=== PATIENT | female | born 2000 | race Caucasian/White ===

== ENCOUNTER 2020-01-10 19:42 | Emergency (ER) | payer OTHER ==
[~2020-01-10] VITALS: Ht 165.1 cm; Wt 61.4 kg
[2020-01-10 20:06] VITALS: BP 105/75
[2020-01-10 21:11] LABS: COLLECTION METHOD CLEAN CATCH
[2020-01-10 21:21] LABS: MUCOUS Present /lpf; PH 5 (5-8); URINE APPEARANCE Hazy; URINE BACTERIA None Seen /hpf; URINE BILIRUBIN Negative (NEGATIVE); URINE BLOOD Negative (NEGATIVE); URINE COLOR Yellow; URINE GLUCOSE Negative (NEGATIVE); URINE KETONE 1+ (NEGATIVE); URINE LEUKOCYTE ESTERASE Negative (NEGATIVE); URINE NITRATE Negative (NEGATIVE); URINE PROTEIN(semi-quant) Negative (NEGATIVE); URINE RBC 0-2 /hpf
[2020-01-10] MEDS ORDERED: CLEVER CHOICE1 EA20 MC (21:36)
[2020-01-10] MEDS ORDERED: ZOFRAN ODT4 MG PO (21:36)
[2020-01-10] MEDS ORDERED: PROAIR HFA0.09 MG/AC IH (21:36)
[2020-01-10 21:49] VITALS: PULSE 73
[2020-01-10 21:50] VITALS: TEMP 98.8
== END 2020-01-10 21:55 | disposition home or self-care (01) ==
LOC: COL.ER 19:42
PROVIDERS: Physician Assistant
DX: R11.2 Nausea with vomiting, unspecified (principal); R50.9 Fever, unspecified; J45.909 Unspecified asthma, uncomplicated; Z20.828 Contact with and (suspected) exposure to other viral communicable diseases; Z88.6 Allergy status to analgesic agent

== ENCOUNTER 2020-06-28 21:18 | Emergency (ER) | payer OTHER ==
[~2020-06-28] VITALS: Ht 165.1 cm; Wt 61.4 kg
[~2020-06-28 21:18] MED LIST: CLEVER CHOICE1 EA20 MC; PROAIR HFA0.09 MG/AC IH; ZOFRAN ODT4 MG PO
[2020-06-28 21:19] VITALS: TEMP 98.8
[2020-06-28 21:36] LABS: BASO # 0.1 (0.0-0.2); BASO % 0.6 % (0.0-2.0); EOS # 0.3 (0.0-0.7); EOS % 2.8 % (0-4.0); GRAN # 5.5 (1.4-6.5); GRAN % 56.6 % (42.2-75.2); HEMOGLOBIN 12.2 g/dl (12.0-15.0); LYMPH # 3.1 (1.2-3.4); LYMPH % 32.4 % (20.0-51.0); MEAN CELL VOLUME 86 fl (80.0-95.0); MEAN CORPUSCULAR HEMOGLOBIN 31 pg (26.0-32.0); MEAN CORPUSCULAR HGB CONC 36 g/dl (33.0-37.0); MEAN PLATELET VOLUME 9.7 fl (7.4-10.4); MONO # 0.7 (0.1-0.6); MONO % 7.3 % (1.7-9.3); PLATELET COUNT 277 K/mm3 (130-400); RED BLOOD COUNT 3.97 M/mm3 (4.10-5.30); REDCELL DISTRIBUTION WIDTH-CV 11.5 % (11.5-14.5)
[2020-06-28 21:46] LABS: ALBUMIN 4.1 gm/dL (3.5-5.0); BILIRUBIN,TOTAL 1.9 mg/dL (0.0-1.0); CALCIUM 9.2 mg/dL (8.4-10.2); CREATININE, serum 0.72 (0.52-1.25); POTASSIUM 3.5 mmol/L (3.4-5.0); TOTAL PROTEIN 6.7 gm/dL (6.4-8.2)
[2020-06-28] MEDS ORDERED: VALIUM 5MG T5 MG/TAB PO (22:35)
[2020-06-28] MEDS ORDERED: NARCAN4 MG NS ×2 (22:35→22:42)
[2020-06-28] MEDS ORDERED: FLEXERIL 1010 MG/TAB PO (22:42)
[2020-06-28 23:14] LABS: COLLECTION METHOD CLEAN CATCH
[2020-06-28 23:27] LABS: MUCOUS Present /lpf; PH 7 (5-8); URINE APPEARANCE Clear; URINE BACTERIA Rare /hpf; URINE BILIRUBIN Negative (NEGATIVE); URINE BLOOD Negative (NEGATIVE); URINE COLOR Yellow; URINE GLUCOSE Negative (NEGATIVE); URINE KETONE Negative (NEGATIVE); URINE LEUKOCYTE ESTERASE Negative (NEGATIVE); URINE NITRATE Negative (NEGATIVE); URINE PROTEIN(semi-quant) Negative (NEGATIVE); URINE RBC 0-2 /hpf
[2020-06-28 23:33] VITALS: BP 115/80; PULSE 81
== END 2020-06-28 23:55 | disposition home or self-care (01) ==
LOC: COL.ER 21:18
PROVIDERS: Emergency Medicine
DX: M54.5 Low back pain (principal); R55 Syncope and collapse; Z88.6 Allergy status to analgesic agent
CPT/HCPCS: J1100; J2270; J2405; J3360; J7030